=== PATIENT | female | born 1940 | race African-American/Black ===

== ENCOUNTER 2016-08-12 09:40 | Observation (INO) | payer MEDICARE, BC ==
[~2016-08-12] VITALS: Ht 160 cm; Wt 101.2 kg
[~2016-08-12 09:40] MED LIST: (None)1 % OP; ACETAMINOPHEN; ALLOPURINOL100 MG PO; ALPHA LIPOIC A200 MG PO; AMLODIPINE BESY10 MG PO; AMLODIPINE5 MG PO; AMOXICILLIN500 MG PO; ASPIRIN ADULT L81 M2 PO; ASPIRIN LOW DOS81 M2 PO; ATENOLOL100 M1 PO; ATROPINE 1% OPTH5 ML OP; CRESTOR10 MG PO; DEMADEX20 MG PO; DIOVAN HC2 PO; FENOFIBRATE MI134 MG PO; FIORICET PO; FLEXERIL PO; GABAPENTIN100 MG PO; MULTIVITAMIN PO; NAPROSYN500 MG PO; NITROGLYCERIN0.4 MG SL; NITROGLYCRN TL; NOVOLIN 70/30 SC; NOVOLOG MIX100 U/ML SC; PANTOPRAZOLE SO40 M1 PO; PLAVIX75 MG PO; PROTONIX40 MG PO; RANEXA PO; SIMBRINZA1 SUS; SIMBRINZA1 SUS OU; TENORMIN50 MG PO; TRAMADOL; TRICOR145 MG PO; TYLENOL325 MG PO; [UNRECOGNIZED DRUG - OTHER] TOP
--- NOTE | 2016-08-12 10:05 | NUR ---
PT TRIAGED, TO ROOM 9 VIA WC.
--- NOTE | 2016-08-12 11:15 | NUR ---
PT RESTING ON STRETCHER NO APPARENT DISTRESS. CALL DALIA QUINTANA.
[2016-08-12 11:17] LABS: HEMATOCRIT 33.7 % (37.0-47.0); HEMOGLOBIN 11.2 g/dl (12.0-16.0); IMMATURE GRANULOCYTES 1.9 % (0.0-1.0); MEAN CELL VOLUME 89.9 fL CALC (80.0-100.0); MEAN CORPUSCULAR HGB 29.9 pG CALC (26.0-32.0); MEAN CORPUSCULAR HGB CONC 33.2 g/L CALC (32.0-36.0); NEUT# 3.25 thou/uL (2.00-7.15); RED BLOOD COUNT 3.75 mill/uL (4.20-5.60); RED CELL DISTRI WIDTH 14.7 % (11.5-15.5)
[2016-08-12 11:18] LABS: URINE BILIRUBIN - DIPSTICK NEGATIVE (NEGATIVE); URINE BLOOD DIPSTICK NEGATIVE (NEGATIVE); URINE COLOR YELLOW; URINE GLUCOSE - DIPSTICK NEGATIVE (NEGATIVE); URINE KETONE NEGATIVE (NEGATIVE); URINE NITRITE - DIPSTICK NEGATIVE (Negative); URINE PROTEIN - DIPSTICK NEGATIVE (NEG-TRACE)
[2016-08-12 11:28] LABS: URINE CLARITY SLIGHT CLOUDY; URINE LEUK ESTERASE MODERATE (NEGATIVE)
[2016-08-12 11:29] LABS: URINE BACTERIA FEW hpf; URINE EPITHELIAL CELLS FEW EPI/hpf (0-FEW)
[2016-08-12 11:30] LABS: ALBUMIN 3.8 g/dL (3.2-5.0); BILIRUBIN, TOTAL 0.5 mg/dL (0.0-1.4); CALCIUM 9.6 mg/dL (8.4-10.2); CREATININE 3.7 mg/dL (0.5-1.0); POTASSIUM 3.8 mmol/l (3.5-5.1); TOTAL PROTEIN 6.8 g/dL (6.3-8.2)
[2016-08-12 11:33] LABS: BARBITURATES NEGATIVE (NEGATIVE); COCAINE NEGATIVE (NEGATIVE); METHADONE NEGATIVE (NEGATIVE); OXCYCODONE NEGATIVE (NEGATIVE); TETRAHYDROCANNABIONOL NEGATIVE (NEGATIVE); TRICYLIC ANTIDEPRESSANTS NEGATIVE (NEGATIVE)
--- NOTE | 2016-08-12 12:38 | NUR ---
PT ADVISED OF PENDING LABS AND WAIT TIME. PT VOICED UNDERSTANDING. COMFORT MEASURES PROVIDED.
--- NOTE | 2016-08-12 13:10 | NUR ---
REPORT CALLED TO JOHN MCCORMICK, ON MEDSURG. PT TO MEDSURG ON TELEMETRY IV SITE HEALTHY. FLUIDS TO SITE. NO APPARENT DISTRESS.
--- NOTE | 2016-08-12 13:36 | NUR ---
PT ADVISED OF PENDING ADMISSION POC. PT VOICED UNDERSTANDING. PT ALERT AND COOPERATIVE.
--- NOTE | 2016-08-12 14:16 | NUR ---
IV ABT INFUSING TO LAC. PORT XRAY TAKEN. COMFORT MEASURES PROVIDED. CALL DALIA QUINTANA.
[2016-08-12 15:28] VITALS: BP 148/67
--- NOTE | 2016-08-12 15:30 | NUR ---
FROM ER VIA STRETCHER ACCOMPANIED BY GREGORIA LOPEZ. PT AMBULATED TO BATHROOM WITH STAND BY ASSIST. RESPS EVENA ND UNLABORED ROOM AIR, TELE MONITOR IN PLACE. SKIN INTACT. ALERT AND ORIENTED X3. DENIES PAIN OR DISCOMFORT. ORIENTED TO ROOM AND CALL SYSTEM. SAFETY PRECAUTIONS REINFORCED. BED IN LOWEST POSITION WITH WHEELS LOCKED. CALL LIGHT WITHIN REACH. ENCOURAGED PT TO CALL FOR ANY NEEDS.
--- NOTE | 2016-08-12 18:29 | NUR ---
DR RODRIGUEZ IN TO SEE PT, FAMILY AT BEDSIDE. NEW ORDERS RECEIVED.
[2016-08-12 20:05] VITALS: BP 141/59
--- NOTE | 2016-08-12 21:55 | NUR ---
PT IN BED A/O TO SELF, AND PLACE, REORIENTED TO TIME AND DATE, DENIES PAIN OR DISCOMFORT. IV FLUIDS INFUSING TO LAC WITH NO COMPLICATIONS. ASSISTED TO BSC, VOIDING CLEAR YELLOW URINE, UNSTEADY GAIT. BACK TO BED, BED ALARM APPLIED. WILL CONTINUE TO MONITOR.
[2016-08-13 00:20] VITALS: BP 136/72
--- NOTE | 2016-08-13 01:00 | NUR ---
RESTING ON RIGHT SIDE WITH EYES CLOSED, RESPIRATIONS EVEN AND UNLABORED. CALL LIGHT IN REACH.
[2016-08-13 04:55] VITALS: BP 149/86
--- NOTE | 2016-08-13 05:00 | NUR ---
PT IN BED CONFUSED, IV HAS BECOME DISLODGED WITH CATH TIP INTACT. ATTEMPTED NEW IV X2 WITH NO SUCCESS. OOB TO BATHROOM WITH UNSTEADY GAIT, VOIDING IN COMMODE THEN BACK TO BED. PT NOTICED TO BECOME DISORIENTED, ATTEMPTED TO REORIENT HER WITH NO SUCCESS, PT STATES "I DONT KNOW YOU, AND THIS IS NOT THE HOSPITAL", REFUSES TO GET BACK TO BED, TEACHING DONE WITH PT R/T FALL PRECAUTION PT CONTINUES TO BE CONFUSED AND REFUSES TO FOLLOW DIRECTIONS. AFTER A FEW MINUTES OF TALKING AND COMFORTING PT SHE AGREES TO GET BACK TO BED, BED ALARM IN PLACE. SPOKE WITH DAUGHTER AND SHE STATES WILL BE IN TO SEE PT IN A FEW MINUTES.
--- NOTE | 2016-08-13 07:00 | NUR ---
RECEIVED BEDSIDE REPORT FROM MONTSERRAT CARLOS. PT RESTING IN BED WITH EYES CLOSED. FAMILY AT BEDSIDE. RESPS EVEN AND UNLABORED ON ROOM AIR, TELE MONITOR IN PLACE. PT CONFUSED, STATES SHE IS NOT IN THE HOSPITAL. REFUSES BLOOD DRAW OR IV RESTART AFTER PULLING OUT IV. ASSISTED TO BEDSIDE COMMODE. PLAN OF CARE DISCUSSED. SAFETY PRECAUTIONS REINFORCED. BED ALARM ON FOR SAFETY. BED IN LOWEST POSITION WITH WHEELS LOCKED. CALL LIGHT WITHIN REACH. WILL CONTINUE TO MONITOR.
[2016-08-13 08:04] LABS: HEMATOCRIT 38.9 % (37.0-47.0); HEMOGLOBIN 12.8 g/dl (12.0-16.0); IMMATURE GRANULOCYTES 0.8 % (0.0-1.0); MEAN CELL VOLUME 91.3 fL CALC (80.0-100.0); MEAN CORPUSCULAR HGB CONC 32.9 g/L CALC (32.0-36.0); NEUT# 3.49 thou/uL (2.00-7.15); RED BLOOD COUNT 4.26 mill/uL (4.20-5.60); RED CELL DISTRI WIDTH 14.8 % (11.5-15.5)
[2016-08-13 08:29] LABS: ALBUMIN 4.1 g/dL (3.2-5.0); CALCIUM 10.2 mg/dL (8.4-10.2); CREATININE 2.6 mg/dL (0.5-1.0); POTASSIUM 3.6 mmol/l (3.5-5.1)
--- NOTE | 2016-08-13 08:42 | NUR ---
DR RODRIGUEZ IN TO SEE PT, NEW ORDERS RECEIVED.
[2016-08-13 08:51] VITALS: BP 136/96
[2016-08-13 09:07] VITALS: BP 136/96
--- NOTE | 2016-08-13 11:30 | NUR ---
PT REFUSING TO HAVE CT SCAN. DR RODRIGUEZ NOTIFIED. NO NEW ORDERS. CONTINUE WITH DISCHARGE.
--- NOTE | 2016-08-13 12:39 | NUR ---
Discharge instructions given. Patient verbalizes understanding of same. Discharged in stable condition via Wheelchair to Home with family. All belongings sent with pt.
== END 2016-08-13 12:37 | disposition home health service (06) ==
LOC: ENPENDDIS → ED 09:40 → ED-I 13:00 → ED 14:37 → MS2 14:38
PROVIDERS: Family Medicine; Internal Medicine Nephrology; ADMIT Internal Medicine; ATTEND Internal Medicine
DX: N17.9 Acute kidney failure, unspecified (principal); E11.22 Type 2 diabetes mellitus with diabetic chronic kidney disease; N18.4 Chronic kidney disease, stage 4 (severe); I12.9 Hypertensive chronic kidney disease with stage 1 through stage 4 chronic kidney disease, or unspecified chronic kidney disease; E78.5 Hyperlipidemia, unspecified; F03.90 Unspecified dementia, unspecified severity, without behavioral disturbance, psychotic disturbance, mood disturbance, and anxiety; I25.10 Atherosclerotic heart disease of native coronary artery without angina pectoris; E11.51 Type 2 diabetes mellitus with diabetic peripheral angiopathy without gangrene; I25.2 Old myocardial infarction; Z95.0 Presence of cardiac pacemaker; Z87.891 Personal history of nicotine dependence; Z79.4 Long term (current) use of insulin

== ENCOUNTER 2016-11-07 19:28 | Emergency (ER) | payer MEDICARE, BC ==
[~2016-11-07] VITALS: Ht 160 cm; Wt 210.0 kg
[2016-11-07] MEDS ORDERED: TORSEMIDE20 M1 PO (20:11)
[2016-11-07 20:45] LABS: HEMATOCRIT 35.2 % (37.0-47.0); HEMOGLOBIN 11.5 g/dl (12.0-16.0); IMMATURE GRANULOCYTES 0.5 % (0.0-1.0); MEAN CELL VOLUME 91.4 fL CALC (80.0-100.0); MEAN CORPUSCULAR HGB 29.9 pG CALC (26.0-32.0); MEAN CORPUSCULAR HGB CONC 32.7 g/L CALC (32.0-36.0); NEUT# 8.11 thou/uL (2.00-7.15); RED BLOOD COUNT 3.85 mill/uL (4.20-5.60); RED CELL DISTRI WIDTH 14.9 % (11.5-15.5)
[2016-11-07 21:05] LABS: ALBUMIN 4.2 g/dL (3.2-5.0); ALKALINE PHOSPHATASE 82 u/l (38-126); ANION GAP 13 (6-22 (CALC)); BILIRUBIN, TOTAL 0.5 mg/dL (0.0-1.4); BUN 36 mg/dL (8-23); BUN/CREATININE RATIO 19 (12-20 (CALC)); CALCIUM 9.6 mg/dL (8.4-10.2); CARBON DIOXIDE 30 mmol/l (22-30); CHLORIDE 99 mmol/l (95-108); CREATININE 1.9 mg/dL (0.5-1.0); GFR 26 ML/MIN (>=60 (CALC)); GFR FOR AFR.AMER. 31 ML/MIN (>=60 (CALC)); GLUCOSE 154 mg/dL (82-115); POTASSIUM 3.6 mmol/l (3.5-5.1); SGOT/AST 68 u/l (9-36); SGPT/ALT 70 u/l (11-66); SODIUM 139 mmol/l (137-146); TOTAL PROTEIN 7.4 g/dL (6.3-8.2)
[2016-11-07 21:19] LABS: MYOGLOBIN 1756 ng/mL (0 - 62)
[2016-11-08 02:46] LABS: URINE BILIRUBIN - DIPSTICK NEGATIVE (NEGATIVE); URINE BLOOD DIPSTICK NEGATIVE (NEGATIVE); URINE CLARITY CLEAR; URINE COLOR YELLOW; URINE GLUCOSE - DIPSTICK NEGATIVE (NEGATIVE); URINE KETONE NEGATIVE (NEGATIVE); URINE LEUK ESTERASE NEGATIVE (NEGATIVE); URINE NITRITE - DIPSTICK NEGATIVE (Negative); URINE PROTEIN - DIPSTICK NEGATIVE (NEG-TRACE)
[2016-11-08 02:55] VITALS: BP 158/88
== END 2016-11-08 02:55 | disposition short-term general hospital (02) ==
LOC: ED 19:28 → ED-I 21:54 → ED 11-08 02:55
PROVIDERS: Emergency Medicine
DX: T79.6XXA Traumatic ischemia of muscle, initial encounter (principal); M62.81 Muscle weakness (generalized); I10 Essential (primary) hypertension; E78.5 Hyperlipidemia, unspecified; E11.9 Type 2 diabetes mellitus without complications; I25.2 Old myocardial infarction; Y92.009 Unspecified place in unspecified non-institutional (private) residence as the place of occurrence of the external cause; W01.0XXA Fall on same level from slipping, tripping and stumbling without subsequent striking against object, initial encounter; Z95.0 Presence of cardiac pacemaker

== ENCOUNTER 2017-01-15 14:50 | Emergency (ER) | payer MEDICARE, BC ==
[~2017-01-15] VITALS: Ht 160 cm; Wt 100.0 kg
[~2017-01-15 14:50] MED LIST changes: +TORSEMIDE20 M1 PO
[2017-01-15 15:22] LABS: URINE BLOOD DIPSTICK LARGE (NEGATIVE); URINE COLOR YELLOW; URINE GLUCOSE - DIPSTICK NEGATIVE (NEGATIVE); URINE KETONE NEGATIVE (NEGATIVE); URINE NITRITE - DIPSTICK NEGATIVE (Negative); URINE PH 5.5 (4.5-8.0); URINE PROTEIN - DIPSTICK 100 mg/dL (NEG-TRACE); URINE SPECIFIC GRAVITY >=1.030
[2017-01-15 15:32] LABS: URINE BILIRUBIN - DIPSTICK SMALL (NEGATIVE); URINE CLARITY CLOUDY; URINE LEUK ESTERASE SMALL (NEGATIVE)
[2017-01-15 15:47] LABS: URINE BACTERIA MODERATE hpf; URINE RBC TNTC RBC/hpf (0-5); URINE SQUAMOUS EPITHELIAL CELL FEW EPI/hpf (0-FEW); URINE WBC 20-50 WBC/hpf (0-5)
[2017-01-15] MEDS ORDERED: COLACE100 MG PO (16:43)
[2017-01-15] MEDS ORDERED: EQL VITAMIN B500 MCG (16:44)
[2017-01-15 16:46] LABS: HEMATOCRIT 39.4 % (37.0-47.0); HEMOGLOBIN 12.5 g/dl (12.0-16.0); IMMATURE GRANULOCYTES 0.3 % (0.0-1.0); MEAN CELL VOLUME 88.3 fL CALC (80.0-100.0); MEAN CORPUSCULAR HGB CONC 31.7 g/L CALC (32.0-36.0); NEUT# 6.6 thou/uL (2.00-7.15); RED BLOOD COUNT 4.46 mill/uL (4.20-5.60); RED CELL DISTRI WIDTH 14.8 % (11.5-15.5)
[2017-01-15] MEDS ORDERED: LOFIBRA67 MG PO (16:52)
[2017-01-15] MEDS ORDERED: DRISDOL50000 UNIT (16:52)
[2017-01-15 17:00] LABS: ALBUMIN 3.3 g/dL (3.2-5.0); ALKALINE PHOSPHATASE 66 u/l (38-126); ANION GAP 12 (6-22 (CALC)); BILIRUBIN, TOTAL 0.9 mg/dL (0.0-1.4); BUN 16 mg/dL (8-23); BUN/CREATININE RATIO 18 (12-20 (CALC)); CALCIUM 10.5 mg/dL (8.4-10.2); CARBON DIOXIDE 34 mmol/l (22-30); CHLORIDE 103 mmol/l (95-108); CREATININE 0.9 mg/dL (0.5-1.0); GFR > 60 ML/MIN (>=60 (CALC)); GFR FOR AFR.AMER. > 60 ML/MIN (>=60 (CALC)); GLUCOSE 128 mg/dL (82-115); POTASSIUM 3.6 mmol/l (3.5-5.1); SGOT/AST 18 u/l (9-36); SGPT/ALT 27 u/l (11-66); SODIUM 146 mmol/l (137-146); TOTAL PROTEIN 6.7 g/dL (6.3-8.2)
[2017-01-15] MEDS ORDERED: FOLIC ACID1 M1 PO (17:11)
[2017-01-15 17:12] LABS: MYOGLOBIN 113 ng/mL (0 - 62)
[2017-01-15] MEDS ORDERED: LEXAPRO10 MG PO (17:12)
[2017-01-15] MEDS ORDERED: LORTAB 5-325 MG1 TAB PO ×2 (17:12→17:13)
[2017-01-15] MEDS ORDERED: NEURONTIN100 MG PO (17:12)
[2017-01-15] MEDS ORDERED: MIRALAX3350 NF PO (17:14)
[2017-01-15] MEDS ORDERED: MILK OF MAG30 ML/UDC PO (17:14)
[2017-01-15] MEDS ORDERED: AMLODIPINE BESYL5 MG PO (17:15)
[2017-01-15] MEDS ORDERED: MULTIVITAMI1 PO (17:15)
[2017-01-15] MEDS ORDERED: NYAMYC100000 UNI (17:16)
[2017-01-15] MEDS ORDERED: NOVOLIN 70/30 SC (17:16)
[2017-01-15] MEDS ORDERED: PROTONIX40 M2 PO (17:18)
[2017-01-15] MEDS ORDERED: PROCRIT 1010000 U/ML IJ (17:19)
[2017-01-15] MEDS ORDERED: RANEXA (17:23)
[2017-01-15] MEDS ORDERED: TRAMADOL HYDROC50 MG (17:24)
[2017-01-15] MEDS ORDERED: RISPERDAL0.25 MG PO (17:24)
[2017-01-15] MEDS ORDERED: MACROBID100 MG PO (17:33)
[2017-01-15 23:50] VITALS: BP 192/79
== END 2017-01-15 23:50 ==
LOC: ED 14:50
PROVIDERS: Emergency Medicine
PROC: 0T9B70Z Drainage of Bladder with Drainage Device, Via Natural or Artificial Opening (ICD-10-PCS; principal; 2017-01-15)
DX: N39.0 Urinary tract infection, site not specified (principal); I10 Essential (primary) hypertension; E78.5 Hyperlipidemia, unspecified; E11.40 Type 2 diabetes mellitus with diabetic neuropathy, unspecified; I25.2 Old myocardial infarction; E11.621 Type 2 diabetes mellitus with foot ulcer; L97.419 Non-pressure chronic ulcer of right heel and midfoot with unspecified severity; Z95.0 Presence of cardiac pacemaker

== ENCOUNTER 2018-06-03 09:35 | Emergency (ER) | payer MEDICARE, BC, OTHER ==
[~2018-06-03] VITALS: Ht 160 cm; Wt 104.0 kg
[~2018-06-03 09:35] MED LIST changes: +AMLODIPINE BESYL5 MG PO; +COLACE100 MG PO; +DRISDOL50000 UNIT PO; +EQL VITAMIN B500 MCG PO; +FOLIC ACID1 M1 PO; +LEXAPRO10 MG PO; +LOFIBRA67 MG PO; +LORTAB 5-325 MG1 TAB PO; +MACROBID100 MG PO; +MILK OF MAG30 ML/UDC PO; +MIRALAX3350 NF PO; +MULTIVITAMI1 PO; +NEURONTIN100 MG PO; +NYAMYC100000 UNI; +PROCRIT 1010000 U/ML IJ; +PROTONIX40 M2 PO; +RANEXA; +RISPERDAL0.25 MG PO; +TRAMADOL HYDROC50 MG
[2018-06-03 12:57] LABS: HEMATOCRIT 36.1 % (37.0-47.0); HEMOGLOBIN 11.7 g/dl (12.0-16.0); IMMATURE GRANULOCYTES 2.2 % (0.0-5.0); MEAN CORPUSCULAR HGB 30.6 pG CALC (26.0-32.0); MEAN CORPUSCULAR HGB CONC 32.4 g/L CALC (32.0-36.0); NEUT# 5.15 thou/uL (2.00-7.15); RED BLOOD COUNT 3.82 mill/uL (4.20-5.60); RED CELL DISTRI WIDTH 19.6 % (11.5-15.5)
[2018-06-03 12:58] LABS: MEAN CELL VOLUME 94.5 fL CALC (80.0-100.0)
[2018-06-03 13:19] LABS: ALBUMIN 2.9 g/dL (3.2-5.0); BILIRUBIN, TOTAL 0.6 mg/dL (0.0-1.4); CREATININE 1.2 mg/dL (0.5-1.0); TOTAL PROTEIN 6.1 g/dL (6.3-8.2)
[2018-06-03 13:23] LABS: POTASSIUM 4.4 mmol/l (3.5-5.1)
[2018-06-03] MEDS ORDERED: ALLOPURINOL100 MG PO (13:32)
[2018-06-03] MEDS ORDERED: LO-DOSE ASA81 MG PO (13:33)
[2018-06-03] MEDS ORDERED: ATENOLOL50 MG PO (13:34)
[2018-06-03] MEDS ORDERED: LIPITOR20 MG PO (13:35)
[2018-06-03] MEDS ORDERED: MIRALAX3350 NF PO (13:42)
[2018-06-03] MEDS ORDERED: TIMOPTIC XE OU (13:46)
[2018-06-03] MEDS ORDERED: BACLOFEN10 MG PO (13:47)
[2018-06-03] MEDS ORDERED: BRIMONIDINE0.2 % OU (13:48)
[2018-06-03] MEDS ORDERED: DEPAKOTE SPR125 MG PO (13:52)
[2018-06-03] MEDS ORDERED: [UNRECOGNIZED DRUG - CODE] PO (13:55)
[2018-06-03 15:40] VITALS: BP 145/68
== END 2018-06-03 15:50 | disposition short-term general hospital (02) ==
LOC: ED 09:35 → ED-I 09:48 → ED 15:50
PROVIDERS: Emergency Medicine
DX: R41.82 Altered mental status, unspecified (principal); T68.XXXA Hypothermia, initial encounter; I95.9 Hypotension, unspecified; I10 Essential (primary) hypertension; E11.9 Type 2 diabetes mellitus without complications; Z79.4 Long term (current) use of insulin; K21.9 Gastro-esophageal reflux disease without esophagitis; G82.50 Quadriplegia, unspecified; E78.5 Hyperlipidemia, unspecified; Z95.0 Presence of cardiac pacemaker; I25.10 Atherosclerotic heart disease of native coronary artery without angina pectoris; Z95.5 Presence of coronary angioplasty implant and graft